=== PATIENT | male | born 1955 | race Caucasian/White ===

== ENCOUNTER → 2017-10-29 | Outpatient (CLI) | payer OTHER, MEDICARE ==
[2015-02-07 11:20] VITALS: BMI 37.6
[~2017-10-29] MED LIST: ACET500T68 PO; ALLO-119 PO; ASPI-764 PO; ASPI81TA94 PO; ATR80PT PO; CELE100C79 PO; CHOL100059 PO; CHOL200051 PO; CYCL10TA29 PO; DIA5 PO; INSU100I SQ; INSU100I30 SQ; INSU100I35 SQ; LANI SUBQ; LEVO-3 PO; LOSA-57 PO; METF-420 PO; MOMR; MOMR ENA; NAP250 PO; NOVOLOG SUBQ; OLM20 PO; OLME1TAB60 PO; OXYC-865 PO; PER PO; TRAZ-163 PO; VIT; ZOLP-360 PO; [UNRECOGNIZED DRUG - OTHER]
--- NOTE | 2017-10-29 10:53 | RADIOLOGY IMAGING REPORT ---
FACILITY: [facility] PATIENT NAME: Jose Teixeira : 1955 MR: [id number] V: [id number] EXAM DATE: ORDERING PHYSICIAN: DAYLIN IVERSON TECHNOLOGIST: Location: [facility] [place] Patient: Jose Teixeira : 1955 Visit/Account:[id number] Date of Sevice: 10/29/2017 EXAMINATION: Abdominal ultrasound complete HISTORY: Elevated LFTs COMPARISON: None. FINDINGS: Gallbladder: No stones, wall thickening, pericholecystic fluid or sonographic Botello sign. Liver: Liver appears enlarged measuring 18 cm in length. There is increased echogenicity throughout the liver which can be seen with fatty infiltration or other infiltrative process. There is an area of decreased echogenicity within the liver adjacent to the gallbladder which may represent an area of focal fatty sparing Common duct: Normal measuring 4.6 mm. Pancreas: Partially obscured by bowel gas although visualized portions grossly unremarkable Spleen: Normal in size and echogenicity measuring 11.4 cm in length. Kidneys: Normal in size and echogenicity, the right measures 12.2 cm in length, and the left 12.1 cm . No hydronephrosis. There are two right renal cysts largest measuring 3.3 centers in diameter. Th e resistive index on the right is 0.72 on the left 0.69 Upper abdominal aorta and IVC: Negative. Ascites: None. IMPRESSION: Mild hepatomegaly with increased echogenicity throughout liver which can be seen with fatty infiltrat ion or other infiltrative process There is a small hypoechoic region in the liver adjacent to the gallbladder which may represent an ar ea of focal fatty sparing Two right renal cysts. Report Dictated By: Aleida James MD at 10/29/2017 10:35 AM Report E-Signed By: Aleida James MD at 10/29/2017 10:48 AM WSN:CHERIE
== END ==
LOC: US 02:43
PROVIDERS: ATTEND Emergency Medicine
DX: K76.0 Fatty (change of) liver, not elsewhere classified (principal); N28.1 Cyst of kidney, acquired; R79.89 Other specified abnormal findings of blood chemistry; E55.9 Vitamin D deficiency, unspecified; M10.9 Gout, unspecified
CPT/HCPCS: 36415; 76700; 82306; 83540; 83550; 84550; 86706; 86707; 86803; 87340; 87350

== ENCOUNTER → 2018-03-11 | Outpatient (CLI) | payer OTHER, MEDICARE ==
[2015-02-07 11:20] VITALS: BMI 37.6
[~2018-03-11] MED LIST changes: +LEVO25TA61 PO; -METF-420 PO; +METF-421 PO; +METF10002 PO; +NEED-653 SUBQ
== END ==
LOC: LAB 14:12
PROVIDERS: ATTEND Anesthesiology
DX: Z01.812 Encounter for preprocedural laboratory examination (principal); M17.11 Unilateral primary osteoarthritis, right knee
CPT/HCPCS: 81001

== ENCOUNTER → 2018-03-11 | Outpatient (CLI) | payer OTHER, MEDICARE ==
[2015-02-07 11:20] VITALS: BMI 37.6
--- NOTE | 2018-03-11 09:30 | EKG ---
FACILITY: [facility] PATIENT NAME: RAMIN LOMAS : [id number] MR: [id number] V: [id number] EXAM DATE: ORDERING PHYSICIAN: DAYLIN IVERSON TECHNOLOGIST: JULIETH Test Reason : PRE OP Blood Pressure : / mmHG Vent. Rate : 076 BPM Atrial Rate : 076 BPM P-R Int : 214 ms QRS Dur : 092 ms QT Int : 398 ms P-R-T Axes : 056 039 073 degrees QTc Int : 447 ms Sinus rhythm with 1st degree AV block Otherwise normal ECG No previous ECGs available Confirmed by DAYLIN IVERSON ([id number]) on 03/14/2018 5:04:42 PM Referred By: ZAYRA Confirmed By:DAYLIN IVERSON
== END ==
LOC: LAB 08:30
PROVIDERS: ATTEND Emergency Medicine
DX: Z02.9 Encounter for administrative examinations, unspecified (principal)

== ENCOUNTER 2018-03-21 02:51 | Inpatient (IN) | payer OTHER, MEDICARE ==
[2018-03-20 15:20] LABS: INR 1.07
[2018-03-21] VITALS (9 sets, daily range): BP systolic 122–147; BP diastolic 72–88
[~2018-03-21] VITALS: Ht 172.7 cm; Wt 122.5 kg
[2018-03-21] MEDS ORDERED: PROPOFOL EMUL(*) 10MG/ML 20 ML 20 ML ONE (10:38)
[2018-03-21] MEDS ORDERED: ONDANSETRON 4 MG/2 ML VIAL ONE (10:38)
[2018-03-21] MEDS ORDERED: LIDOCAINE MPF 1% 5 ML VIAL ONE (10:38)
[2018-03-21] MEDS ORDERED: DEXAMETHASONE SOD PHOS 10MG/ML ONE (10:38)
[2018-03-21] MEDS ORDERED: ROCURONIUM BROM 10 MG/ML 10 ML ONE (10:38)
[2018-03-21] MEDS ORDERED: fentaNYL CITR 100 MCG/2 ML AMP ONE ×3 (10:41→14:55)
[2018-03-21] MEDS ORDERED: ROPIVACAINE 0.2% 20 ML VIAL ONE ×2 (10:42→14:30)
[2018-03-21] MEDS ORDERED: TRANEXAMIC AC 1000 MG/10ML SDV 1,000 MG in DEXTROSE 5% 50 ML BAG 50 ML IV ONE (11:25)
[2018-03-21] MEDS ORDERED: FAMOTIDINE 20 MG TAB PO ONE (11:25)
[2018-03-21] MEDS ORDERED: ceFAZolin(*) 2GM/D5W 50ML 50 ML IVPB ONE (11:25)
[2018-03-21] MEDS ORDERED: PREGABALIN 150 MG CAPSULE PO ONE (11:25)
[2018-03-21] MEDS ORDERED: MIDAZOLAM 2 MG/2 ML VIAL IVP PRN (11:25)
[2018-03-21] MEDS ORDERED: NORMOSOL R SOLN(*) 1000 ML BAG 1,000 ML IV PRN ×2 (11:25→15:05)
[2018-03-21] MEDS ORDERED: CELECOXIB 200 MG CAP PO ONE (11:25)
[2018-03-21] MEDS ORDERED: LIDOCAINE/SOD BICARB 8.4% SYR ID ONE (11:25)
[2018-03-21] MEDS ORDERED: ACETAMINOPHEN 500 MG TAB PO ONE (11:25)
[2018-03-21] MEDS ORDERED: cloNIDine EPIDUR INJ 100MCG/ML 40 MCG, ROPIVACAINE 0.5% 20 ML VIAL 25 ML, EPINEPHrine H... INJ ONE (11:25)
[2018-03-21] MEDS ORDERED: ROPIVACAINE 0.2% 400 MG/200ML 250 ML CONINFUS ONE (12:25)
[2018-03-21] MEDS ORDERED: DEXMEDETOMIDINE HCL 200 MCG/2 ML IV ONE (12:30)
[2018-03-21] MEDS ORDERED: SUGAMMADEX SOD 500 MG/5 ML SDV ONE (14:09)
[2018-03-21] MEDS ORDERED: LACTATED RINGER 3000 ML BAG IR ONE (14:13)
[2018-03-21] MEDS ORDERED: KETOROLAC 30 MG/ML VIAL ONE (14:39)
[2018-03-21] MEDS ORDERED: BISACODYL 10 MG SUPP PR PRN (15:05)
[2018-03-21] MEDS ORDERED: ONDANSETRON 4 MG/2 ML VIAL IVP PRN (15:05)
[2018-03-21] MEDS ORDERED: NALOXONE HCL 0.4 MG/ML VIAL IVP PRN (15:05)
[2018-03-21] MEDS ORDERED: MORPHINE SULFATE 30 MG PCA IV PRN (15:05)
[2018-03-21] MEDS ORDERED: PROMETHAZINE 25 MG/ML 1 ML AMP IVP PRN (15:05)
[2018-03-21] MEDS ORDERED: FLUSH 10 ML SYR IVP PRN (15:05)
[2018-03-21] MEDS ORDERED: MAGNESIUM HYDROXIDE* 30ML UDCP PO PRN (15:05)
[2018-03-21] MEDS ORDERED: ZOLPIDEM TARTRATE 5 MG TAB PO PRN (15:05)
[2018-03-21] MEDS: HYDROmorphone HCL 2 MG/ML SDV ONE (15:07)
[2018-03-21] MEDS ORDERED: MORPHINE 4 MG/ML SDV IVP PRN (15:10)
--- NOTE | 2018-03-21 15:18 | RADIOLOGY IMAGING REPORT ---
FACILITY: PATIENT NAME: Jose Teixeira : 1955 MR: [id number] V: [id number] EXAM DATE: ORDERING PHYSICIAN: PIOTR COLEMAN TECHNOLOGIST: Location: [facility] Patient: Jose Teixeira : 1955 Visit/Account:[id number] Date of Sevice: 03/21/2018 EXAMINATION: Right knee radiographs 2 views HISTORY: Status post total knee arthroplasty. COMPARISON: None. FINDINGS: AP and lateral views of the right knee are obtained. Bones: There is no periprosthetic fracture. Joint spaces: Negative. Hardware: Total knee arthroplasty is well-positioned. Alignment: Normal. Soft tissues: Negative. Effusion: Small amount of fluid and air in the joint following recent surgery. IMPRESSION: Status post right total knee arthroplasty without evidence of hardware complication. Report Dictated By: Gricel Jansen MD at 03/21/2018 3:13 PM Report E-Signed By: Gricel Jansen MD at 03/21/2018 3:14 PM AYLINN:CHERIE
[2018-03-21] MEDS: ACETAMINOPHEN 500 MG TAB PO SCH (17:55)
--- NOTE | 2018-03-21 18:22 | Hospitalist Progress Note ---
Subjective Progress Notes Subjective Patient seen post-op. He reports doing well. No CP/SOB/N/V. Reviewed PMHx (type 2 DM on insulin, HTN, BOBBY on BiPAP) and medications. Physical Exam Vital Signs Date Time Temp Pulse Resp B/P (MAP) Pulse Ox O2 Delivery O2 Flow Rate FiO2 03/21/18 17:58 97.6 61 18 147/79 (101) 94 Nasal Cannula 3.0 Intake and Output 03/22/18 07:00 Intake Total 2550 ml Output Total 450 ml Balance 2100 ml Intake Oral 400 ml IV Total 2150 ml Output Urine Total 350 ml Estimated Blood Loss 100 ml General Appearance: Alert, Awake Eyes: Other (false right eye) Cardiovascular: Regular Rate and Rhythm Respiratory: Clear to Auscultation GI: Soft and Non-Tender Item Value Date Time Whole Blood Glucose 211 mg/DL H 03/21/18 1538 Whole Blood Glucose 170 mg/DL H 03/21/18 1100 Assessment and Plan Problems: (1) HTN (hypertension) Status: Chronic Assessment & Plan: Monitor BPs and resume medications as needed (losartan, HCTZ ). (2) Hypothyroidism Status: Chronic Assessment & Plan: Continue L-thyroxine. (3) DM type 2 (diabetes mellitus, type 2) Status: Chronic Assessment & Plan: ADA diet, monitor glucoses, and continue Lantus with SSI as needed. (4) BOBBY (obstructive sleep apnea) Status: Chronic Assessment & Plan: Continue BiPAP. Exam Sepsis Risk: No Definite Risk HE HUYNH MD March 21, 2018 18:22
[2018-03-21] MEDS: INSULIN HUM LISPRO 100 UN/ML 3 ML VIAL SUBQ PRN ×2 (19:21→20:53)
[2018-03-21] MEDS: oxyCODONE HCL 5 MG CAP PO PRN (19:30)
[2018-03-21] MEDS ORDERED: NS(*) 0.9% 250 ML BAG 250 ML ONE (19:46)
[2018-03-21] MEDS: ceFAZolin(*) 2GM/D5W 50ML 50 ML IVPB SCH (19:57)
[2018-03-21] MEDS ORDERED: ATORVASTATIN 40 MG TAB PO SCH (21:00)
[2018-03-21] MEDS ORDERED: ASPIRIN 325 MG TAB PO ONE (21:00)
[2018-03-21] MEDS ORDERED: INSULIN GLARGINE 100 U/ML 3 ML PEN SQ SCH (21:00)
[2018-03-21] MEDS ORDERED: KETOROLAC TROM 10MG TAB PO SCH (23:00)
[2018-03-22] MEDS: oxyCODONE HCL 5 MG CAP PO PRN ×4 (00:02→12:59)
[2018-03-22 00:04] VITALS: BP 129/70
[2018-03-22] MEDS: ACETAMINOPHEN 500 MG TAB PO SCH ×2 (02:00→10:25)
[2018-03-22 03:47] VITALS: BP 109/67
[2018-03-22] MEDS: ceFAZolin(*) 2GM/D5W 50ML 50 ML IVPB SCH ×2 (04:02→11:20)
[2018-03-22] MEDS: KETOROLAC TROM 10MG TAB PO PRN ×2 (06:32→15:22)
[2018-03-22 07:15] VITALS: BP 109/74
[2018-03-22] MEDS: INSULIN HUM LISPRO 100 UN/ML 3 ML VIAL SUBQ PRN ×2 (07:30→11:18)
[2018-03-22] MEDS ORDERED: ASPIRIN 325 MG TAB PO SCH (09:00)
[2018-03-22] MEDS ORDERED: LOSARTAN POTASSIUM 50 MG TAB PO SCH (09:00)
[2018-03-22] MEDS ORDERED: metFORMIN HCL XR 500 MG TABCR PO SCH (09:00)
[2018-03-22] MEDS ORDERED: ALLOPURINOL 300 MG TAB PO SCH (09:00)
[2018-03-22] MEDS ORDERED: HYDROCHLOROTHIAZIDE 25 MG TAB PO SCH (09:00)
[2018-03-22 10:30] VITALS: Ht 172.7 cm; Wt 122.5 kg
[2018-03-22 11:15] VITALS: BP 112/73
[2018-03-22] MEDS ORDERED: INSULIN HUM LISPRO 100 UN/ML 3 ML VIAL SUBQ SCH (11:30)
--- NOTE | 2018-03-22 12:10 | Hospitalist Progress Note ---
Subjective Progress Notes Subjective No cp/sob. Physical Exam Vital Signs Date Time Temp Pulse Resp B/P (MAP) Pulse Ox O2 Delivery O2 Flow Rate FiO2 03/22/18 11:31 87 03/22/18 11:15 97.7 79 16 112/73 (86) Nasal Cannula 2.0 Intake and Output 03/23/18 07:00 Intake Total 1360 ml Balance 1360 ml Intake Oral 1360 ml # Voids 1 General Appearance: Alert, Awake, No Acute Distress Result Diagram: 03/22/18 0519 03/22/18518 Assessment and Plan Problems: (1) Status post knee replacement Status: Acute Assessment & Plan: No CV issues. He is still requiring O2. He will be on ASA 325mg a day for blood clot prevention for 30 days after surgery. (2) DM type 2 (diabetes mellitus, type 2) Status: Chronic Assessment & Plan: Glucose ranging from 204-232. ADA diet, monitor glucoses, and continue Lantus with SSI as needed. Will add 10 units of preprandial insulin. (3) HTN (hypertension) Status: Chronic Assessment & Plan: Monitor BPs and resume medications as needed (losartan, HCTZ ). (4) Hypothyroidism Status: Chronic Assessment & Plan: Continue L-thyroxine. (5) BOBBY (obstructive sleep apnea) Status: Chronic Assessment & Plan: Continue BiPAP. Exam Sepsis Risk: No Definite Risk Problem Qualifiers (1) Status post knee replacement: Laterality: right Qualified Codes: Z96.651 - Presence of right artificial knee joint MARIO COTA MD March 22, 2018 12:09
[2018-03-22] MEDS ORDERED: ASPI-757 PO (15:23)
--- NOTE | 2018-03-22 16:20 | OPERATIVE REPORT 1 ---
EVENT DATE: March 21, 2018 SURGEON: Hector Dave MD ANESTHESIOLOGIST: Don Gallegos MD ANESTHESIA: Right adductor block with indwelling catheter and general anesthesia. We also utilized 1 g of IV tranexamic acid 10 minutes prior to the start of the procedure and after the implantation. We also used 50 mL of our standard ropivacaine/Toradol cocktail at the end. ED TECH: MEAGAN Gill PREOPERATIVE DIAGNOSIS Right knee degenerative joint disease. POSTOPERATIVE DIAGNOSIS Right knee degenerative joint disease. PROCEDURE PERFORMED Right total knee arthroplasty. IMPLANTS USED MicroPort medial pivot-shift CS system with a 5 femur, 6 tibia, 10 mm CS insert , and a 32 x 8 symmetric patella, femur cut 6 degrees valgus, 10 mm. We utilized two packages of [employer] [place] Blue Gentamicin Cement and one ZipLine wound closure system. SPECIMENS None. COMPLICATIONS None. BLOOD LOSS Estimated to be 200 mL. DESCRIPTION OF PROCEDURE The patient was brought to the OR after received appropriate preoperative antibiotic and Dr. Gallegos performed right adductor block, followed by indwelling catheter and general anesthesia. Right thigh tourniquet placed. Right lower extremity prepped and draped in the usual sterile fashion. Midline incision made following a median parapatellar arthrotomy. We dissected subperiosteally with the Bovie on the medial tibial plateau to the level of the semimembranosus insertion. Fat pad was excised, patella released, and scar tissue in the lateral gutter released. The patella was everted and the knee brought into hyperflexion. ACL and PCL were released subperiosteally by Bovie. Remaining articular cartilage was removed from the distal femoral condyles by sagittal saw. We broached the canal of the femur with a step cut drill, and then we placed our distal intramedullary cutting guide, setting this up at 6 degrees valgus, 10 mm, and we pinned this into place. Appropriate retractors were placed. We made our distal cut. Sizing guide was then positioned referencing off the posterior condyle, epicondyles, and anterior flange. This was sized to a #5, and we drove the 30-degree external rotation holes. The four-in-one cutting block was positioned, followed by Z retractors, and made our four cuts. Tibia was brought anterior in the femur with appropriate retractors, and step cut drill was utilized to broach the tibial canal. We placed our intramedullary tibial guide which set us up for slope. We then took 10 mm off the least involved lateral tibial plateau. Then we set the cutting block up referencing 10 mm off the lateral tibial plateau. An appropriate rotation block was pinned into place. Appropriate retractors were placed, and tibia cut made. This was sized to a #6. The stumps of the ACL and PCL, medial and lateral meniscus were removed by Bovie. Posterior osteophytes were removed by curved osteotome, followed by elevation of the capsule with a Caruso elevator. We placed our trial tibial baseplate #6 referencing the previous rotation, pinned this in place, placed a 10 mm insert, and then our femur. We achieved full extension, flexion of about 130, limited by body habitus, stability to varus and valgus stress, and solid end-point anterior drawer. Knee was brought out in full extension, and patella was sized 25 mm. This was cut down 8 with our guide. A 32 x 8 fit this appropriately. Peg hole guide was positioned inferiorly and medially. Peg holes were drilled. We placed our patella, brought the knee up into flexion, drilled for peg holes in the femur, placed these, and cut for a trochlear chip. This was then placed. Again, we had zero to 130 degrees range of motion, stability to varus/valgus stress, patella tracked well, solid end-point and anterior drawer. Patella, femur, and tibia inserts removed. Appropriate retractors are placed. We set up our punch tower for the keel. We cut, reamed, and punched, and this construct was then removed. Bone plugs placed in the distal femur. I mixed two packages of [place] Blue Cement with gentamicin. We copiously irrigated by pulse lavage, injected 10 mL of our cocktail in the posterior capsule, and positioned the knee for the implantation after cleaning off the surfaces. We started with the tibia. This was cemented into place, followed by a 10 mm CS insert, and then our femur. Excess cement was removed. Knee brought in full extension with axial compression while we cemented the patella. It took 14 minutes for the cement to harden, and we assessed our range of motion and stability, and it was as previous. We then copiously irrigated by pulse lavage and injected the 40 mL of our remaining cocktail in and around the distal quad mechanism and closed the arthrotomy with #2 Vicryl, followed by 2-0 Vicryl in the subcutaneous tissues, and ZipLine wound closure for skin at 45 degrees of angle of the knee. Dressing was applied. Patient extubated and taken to recovery in stable condition. Hospitalist team will be consulted for medical management, PT and OT for rehab. STEF
--- NOTE | 2018-03-23 15:38 | DISCHARGE SUMMARY ---
HISTORY OF PRESENT ILLNESS Patient is a 63-year-old male admitted to Day Surgery and underwent right total knee arthroplasty. Postoperatively the hospitalist team was consulted for medical management and anticoagulation, PT and OT for rehab. He progressed in a very rapid way and on postop day one nursing contacted me and he was cleared by Physical Therapy and desired to go home. His was in agreement with this. Nursing was instructed to train him in dressing changes. That morning his right lower extremity was neurovascularly intact, dressings were clean, dry and intact. He was recommended outpatient physical therapy and home CPM. Prior to discharge he will be cleared by the hospitalist team and they will transfer his medical management and anticoagulation. We will follow him up in two weeks' time in our [facility]. PRINCIPAL DIAGNOSIS Right knee degenerative joint disease. PRINCIPAL PROCEDURE Right total knee arthroplasty. FLORENCIAD
== END 2018-03-22 16:11 | disposition home or self-care (01) | DRG 470 ==
LOC: OR 02:51 → MED 17:25 → OBSVTOIN 17:25
PROVIDERS: ADMIT Orthopaedic Surgery; ATTEND Orthopaedic Surgery
PROC: 5A09357 Assistance with Respiratory Ventilation, Less than 24 Consecutive Hours, Continuous Positive Airway Pressure (ICD-10-PCS; 2018-03-21)
PROC: 0SRC0J9 Replacement of Right Knee Joint with Synthetic Substitute, Cemented, Open Approach (ICD-10-PCS; principal; 2018-03-21 12:10)
DX: M17.11 Unilateral primary osteoarthritis, right knee (principal); Z68.41 Body mass index [BMI] 40.0-44.9, adult; I10 Essential (primary) hypertension; E11.9 Type 2 diabetes mellitus without complications; G47.33 Obstructive sleep apnea (adult) (pediatric); M1A.9XX0 Chronic gout, unspecified, without tophus (tophi); E66.9 Obesity, unspecified; E78.5 Hyperlipidemia, unspecified; F17.220 Nicotine dependence, chewing tobacco, uncomplicated; E03.9 Hypothyroidism, unspecified; Z96.652 Presence of left artificial knee joint; Z79.4 Long term (current) use of insulin; Z99.81 Dependence on supplemental oxygen
CPT/HCPCS: 36415; 36416; 82310; 82374; 82435; 82565; 82947; 82948; 84132; 84295; 84520; 85014; 85018; 85610; 86850; 86900; 86901; 96372; 97161; J0171; J0690; J0735; J1100; J1170; J1815; J1885; J2001; J2405; J2704; J2795; J3010; J7050; J7060

== ENCOUNTER → 2018-05-02 | Outpatient (CLI) | payer OTHER, MEDICARE ==
[2018-03-22 10:30] VITALS: BMI 41.0
[~2018-05-02] MED LIST changes: +ASPI-757 PO; +BLOO-1777 MC
[2018-05-02 08:24] LABS: PLATELET COUNT, AUTOMATED 232 K/uL (150-450)
[2018-05-02 10:19] LABS: LDL CHOLESTEROL 35 mg/dl
== END ==
LOC: LAB 08:09
PROVIDERS: ATTEND Emergency Medicine
DX: E11.9 Type 2 diabetes mellitus without complications (principal); I10 Essential (primary) hypertension; E03.9 Hypothyroidism, unspecified
CPT/HCPCS: 36415; 82040; 82247; 82310; 82374; 82435; 82465; 82565; 82947; 83036; 83718; 84075; 84132; 84155; 84295; 84443; 84450; 84460; 84478; 84520; 85025

== ENCOUNTER → 2018-09-07 | Outpatient (CLI) | payer OTHER, MEDICARE ==
[2018-03-22 10:30] VITALS: BMI 41.0
[~2018-09-07] MED LIST changes: +LEV125 PO; -METF-421 PO; +METF-452 PO; -TRAZ-163 PO; +TRAZ100T31 PO; +ZOLP-358 PO
== END ==
LOC: LAB 08:49
PROVIDERS: ATTEND Emergency Medicine
DX: E11.9 Type 2 diabetes mellitus without complications (principal); E55.9 Vitamin D deficiency, unspecified
CPT/HCPCS: 36415; 82306; 83036

== ENCOUNTER → 2019-05-19 | Outpatient (CLI) | payer OTHER, MEDICARE ==
[2018-03-22 10:30] VITALS: BMI 41.0
[~2019-05-19] MED LIST changes: +ATOR20TA65 PO; +DULA0.75 SUBQ; +DULA1.5P SUBQ; +PNEU0.5D3 IM; +SCOP1PAT2 TOP; +TRAZ50TA52 PO
== END ==
LOC: LAB 08:44
PROVIDERS: ATTEND Emergency Medicine
DX: E11.9 Type 2 diabetes mellitus without complications (principal)
CPT/HCPCS: 36415; 83036